=== PATIENT | female | born 1955 | race Caucasian/White ===

== ENCOUNTER 2023-03-26 08:54 | Day surgery (SDC) | payer OTHER ==
[~2023-03-26] VITALS: Ht 162.6 cm; Wt 54.9 kg
[~2023-03-26 08:54] MED LIST: CEFAZOLIN SOD 2 GM in D5W 50 ML IV ONE
[2023-03-26 09:05] VITALS: O2SAT 97
[2023-03-26] MEDS ORDERED: ACETAMINOPHEN I.V. 1000 MG 100 ML IV ONE (12:41)
[2023-03-26] MEDS ORDERED: MORPHINE SULFATE 10 MG/ML VIAL ONE (12:47)
[2023-03-26] MEDS ORDERED: KETOROLAC TROMETHAMINE 30 MG VIAL ONE (12:47)
[2023-03-26] MEDS ORDERED: DESFLURANE 15 MIN GAS INH ONE (12:47)
[2023-03-26] MEDS ORDERED: NS IRRIG SOLN 1000 ML IR ONE (12:47)
[2023-03-26] MEDS ORDERED: fentaNYL CITRATE/PF 100 MCG/2 ML AMP ONE (12:47)
[2023-03-26] MEDS ORDERED: LR 1,000 ML IV.SOLN IV ONE (12:47)
[2023-03-26] MEDS ORDERED: BUPIVACAINE /PF 0.25% 30 ML VIAL INJ ONE (12:47)
[2023-03-26] MEDS ORDERED: PROPOFOL 200MG/ 20ML VIAL (DIPRIVAN) IV ONE (12:47)
[2023-03-26] MEDS ORDERED: SUGAMMADEX SODIUM 200 MG/2 ML VIAL IV ONE (12:47)
[2023-03-26] MEDS ORDERED: DEXAMETHASONE SOD PHOSPHATE 4 MG/ML VIAL ONE (12:47)
[2023-03-26] MEDS ORDERED: ROCURONIUM BROMIDE 10 MG/ML (ZEMURON) ONE (12:47)
[2023-03-26] MEDS ORDERED: METOCLOPRAMIDE HCL 10 MG/2 ML VIAL ONE (12:47)
[2023-03-26] MEDS ORDERED: CEFAZOLIN 1 GM IVPB PREMIX 50 ML IV ONE (12:47)
[2023-03-26] MEDS ORDERED: SUCCINYLCHOLINE CHLORIDE 20 MG/ML(QUELICIN) ONE (12:47)
[2023-03-26] MEDS ORDERED: ONDANSETRON HCL 4 MG/2 ML VIAL ONE (12:47)
[2023-03-26] MEDS ORDERED: ONDANSETRON HCL 4 MG/2 ML VIAL IVP PRN (13:15)
[2023-03-26] MEDS ORDERED: MORPHINE 4 MG INJ. 4 MG/ML VIAL IVP PRN ×3 (13:15)
[2023-03-26 16:57] VITALS: BP_SYST 125; PULSE 66; RESP 16
== END 2023-03-26 16:46 | disposition home or self-care (01) ==
LOC: SDS 08:54 → SMU 08:55 → SDS 16:46
PROVIDERS: ATTEND Surgery
DX: K41.91 Unilateral femoral hernia, without obstruction or gangrene, recurrent (principal); K45.8 Other specified abdominal hernia without obstruction or gangrene; R10.2 Pelvic and perineal pain; M81.0 Age-related osteoporosis without current pathological fracture; Z88.1 Allergy status to other antibiotic agents; Z91.040 Latex allergy status
CPT/HCPCS: 87081; 49659; J3490 ×2; J0690 ×2; J1100; J1885; J2765; J2405; J2704; J0330; J3010; J2270; J7060; J7120; C1727; J0131; C1781; E0190